=== PATIENT | female | born 1990 | race Caucasian/White ===

== ENCOUNTER 2017-01-13 05:44 | Day surgery (SDC) | payer OTHER ==
[~2017-01-13] VITALS: Ht 162.6 cm; Wt 87.0 kg
[2017-01-13] VITALS (9 sets, daily range): BP systolic 103–118; BP diastolic 67–77; PULSE 78–88; RESP 11–17; O2SAT 94–100
[~2017-01-13 05:44] MED LIST: LEVO88CA2 PO; Lactated Ringer's 1,000 ML IV SCH; MULT-1018 PO
[2017-01-13] MEDS ORDERED: fentaNYL-PF 50 mCg/mL 2 mL Inj ONE (05:45)
[2017-01-13] MEDS ORDERED: Ondansetron 2 mg/mL 2 mL Inj ONE (05:45)
[2017-01-13] MEDS ORDERED: Propofol 10,000 mCg/mL 20 mL Inj ONE (05:45)
[2017-01-13] MEDS ORDERED: Dexamethasone 4 mg/mL Inj ONE (05:45)
[2017-01-13] MEDS ORDERED: CeFAZolin 2 Gm/50 mL D5W IV Premix IV ONE (06:00)
[2017-01-13] MEDS ORDERED: Lactated Ringer's 1,000 ML IV ONE (06:21)
[2017-01-13] MEDS ORDERED: Lactated Ringer's 1,000 ML IV SCH (07:34)
[2017-01-13] MEDS ORDERED: Lactated Ringer's 500 ML IV PRN (07:34)
--- NOTE | 2017-01-13 07:34 | PCM.HPANE ---
Patient Data Surgeon Admitting Provider: Attending Provider:Scott Nelson MD Primary Care Physician:Jan Nevarez MD Other Provider:[facility] Reason for Visit Left Meniscal Tear Ht/WT & BMI Height (Feet): 5 Height (Inches): 4.00 Weight (Kilograms): 87.000 Body Mass Index 32.00 Allergies Coded Allergies: latex (Verified Allergy, Intermediate, Hives, 01/05/17) Past Anesthesia History Anesthesia History: Denies:: Abnormal Airway, Anesthesia Reactions (nausea from pain med), Difficult Intubation, Fam Anesthesia Reaction, Fam Malignant Hypertherm, Malignant Hyperthermia Diabetes History Hx Diabetes?: No MRSA MRSA: Yes (lower left back, 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) Medications Hypertension Medication: No Home Meds Incl Beta Roque: No Reported Medications Levothyroxine (Tirosint)88 Mcg [id number] Mcg PO DAILY 01/05/17 Multivitamin (Multi Vitamin Daily)1 Each Tablet1 Each PO DAILY 30 Days Ref 0 01/05/17 History History of ENT Problems?: No HEENT History: Denies:: Abnormal Airway Cataracts Difficult Intubation Dysphagia Glaucoma Hearing Problem Sinus Problem TMJ Denture Type: None Teeth Condition: Within Normal Limits Hx of Heart Problems?: No Cardiovascular History: Denies:: AICD Abdominal Aortic Aneurism Atrial Fibrillation Congestive Heart Failure Edema Heart Murmur Hypertension Irregular Heartbeat Pacemaker Peripheral Vascular Rheumatic Fever Hx of Respiratory Problem?: No Respiratory History: Denies:: Asthma COPD Emphysema Oxygen Administration Pneumonia Tuberculosis Use of C-PAP Machine Hx Neurologic Problems?: Yes Neurological History: Positive for:: Headaches (daily headaches , occ migraines) Denies:: Alzheimer's Disease CVA Dementia Dizziness Multiple Sclerosis Parkinson's Disease Seizures TIA Hx of GI Problems?: No Hx of Problems?: No Genitourinary History: Denies:: Kidney Stones Urinary Tract Infection Female Hx: Denies:: Currently Problems with Breasts? Skin History: Denies:: History Skin Disorders? Pressure Ulcers Hx Musculoskeletal Problems?: Yes Musculoskeletal History: Positive for:: Musculoskeletal Trauma (left knee current admission problem) Denies:: Fibromyalgia Osteoarthritis Systemic Lupus Hx of Psycho/Social Problems?: No Psycho Social History: Denies:: Anxiety Hx Depression Hx Surgeries?: Yes (appe) Hx Any Other Health Problems?: Yes Other History: Positive for:: Thyroid Disease (Hypothyroid) Denies:: Cancer History Blood Transfusions: Positive for:: Accept Blood Products? Denies:: Blood Transfusions Hx Diabetes: No Hx Alcohol Use: YesAlcoholic Drinks Per Day: on weekends, holidays socialHx Substance Use: No Smoking Status: Never Smoker Have You Smoked inLast 12 mo: No Stop/Bang S-Snoring: Do You Snore Loudly: No T-Tired: feel tired, fatigued: Yes O-Obsered: Observed not breath: No P-Blood Pressure: treated: No B- Body Mass Index > 35 kg/m2: No A- Age over 50: No N- Neck Large Circumference: No G- Gender Male: No ARAVIND Total Score: 1 Risk Assessment Category Category 1A: Patient has history of documented sleep apnea, and HAS NOT received any narcotic, sedative or anesthesia administration during this stay. Category 1B: Patient has history of documented sleep apnea, and HAS received any narcotic , sedative or anesthesia administration during this stay Category 2: Patient has SUSPECTED Obstructive Sleep Apnea, and HAS received any narcotic , sedative or anesthesia administration during this stay. Category 3: Patient has SUSPECTED Obstructive Sleep Apnea and HAS NOT received narcotic, sedative or anesthesia administration during this stay. Category 4: Outpatient in Procedural Areas with known sleep apnea or who screen positive for High Risk via the STOP/BANG questionnaire. Exam Exam Vital Signs Vital Signs Date Time Temp Pulse Resp B/P Pulse Ox O2 Delivery O2 Flow Rate FiO2 01/13/17 06:14 36.7 86 17 109/72 98 Room Air General Appearance: Alert, Oriented X3 HEENT/AIRWAY: MP 2, Neck Movement (FROM) Lungs: Clear to Auscultation, Clear to Percussion Heart: Exam Unremarkable, Regular Rate/Rhythm Meds/Labs/Diagnostics Admission Meds Current Medications Lactated Ringer's (Lr) 1,000 ml @ ud STK-MED ONCE IV Last administered on t 06:21; Start 01/13/17 at 06:21; Stop 01/13/17 at 06:22; Status DC Plan Impression Patient chart reviewed, patient interviewed and anesthestic plan with risks, benefits, and alternatives discussed, and informed consent obtained. ASA Physical Status: ASA2 Mod Systemic Disease Anesthetic Plan: GA Bene/Risks/Altern/Consents: Yes HP Complete Prior to Induction: Yes Darius Larry MD Jan 13, 2017 07:18
[2017-01-13] MEDS ORDERED: Phenylephrine 10,000 mCg/mL Inj IVPUSH PRN (07:35)
[2017-01-13] MEDS ORDERED: Ondansetron 2 mg/mL 2 mL Inj IVPUSH PRN (07:35)
[2017-01-13] MEDS ORDERED: Atropine 0.4 mg/mL Inj IVPUSH PRN (07:35)
[2017-01-13] MEDS ORDERED: Labetalol 5 mg/mL 4 mL Inj IV PRN (07:35)
[2017-01-13] MEDS ORDERED: MetoCLOpramide 5 mg/mL 2 mL Inj IVPUSH PRN (07:35)
[2017-01-13] MEDS ORDERED: HYDROmorphone 1 mg/mL Inj IVPUSH PRN (07:35)
[2017-01-13] MEDS ORDERED: fentaNYL-PF 50 mCg/mL 2 mL Inj IVPUSH PRN (07:35)
[2017-01-13] MEDS ORDERED: EPHEDrine Sulfate 50 mg/mL Inj IVPUSH PRN (07:35)
[2017-01-13] MEDS ORDERED: Ropivacaine-PF 0.5% 30 mL Inj INFILTRATE ONE (07:48)
[2017-01-13] MEDS ORDERED: HYDROcodone-APAP 5-325 mg Tablet PO PRN (08:15)
[2017-01-13] MEDS ORDERED: Ketorolac 15 mg/mL Inj IVPUSH ONE (08:15)
--- NOTE | 2017-01-13 08:18 | PCM.ORTHOP ---
Orthopedic Operative Report Date of Service: Jan 13, 2017 Pre Operative Diagnosis left knee lateral meniscus tear Post Operative Diagnosis Left knee lateral meniscus tear, synovitis Procedure Left knee arthroscopy, partial lateral meniscectomy, partial synovectomy Surgeon Surgeon: Scott Nelson MD Assistants: Everett Pack Indication for Procedure Left knee lateral meniscus tear Findings Per dictation Details of Procedure INDICATIONS:Eleanor Terry is a 26-year-old female who has had a history of left knee pain. The patient has failed conservative management. X-rays show the tibiofemoral joints to be preserved with no DJD. MRI was obtained which reveals lateral meniscus tear. The patient has had persistent symptoms and is now brought to the operating room for arthroscopy. The risks, benefits, and alternatives of surgery were discussed with the patient. The risks included but were not limited to infection, bleeding, damage to vessels and nerves, loss of motion, continued pain, re-tear of the meniscus, deep venous thrombosis, and complications due to anesthesia including nerve injury, myocardial infarction, stroke, , etc. The patient stated understanding of the nature of the surgical procedure and gave written and verbal consent to proceed. PROCEDURE: The patient was brought to the operating room and placed supine on the operating room table. After the administration of general anesthesia the patient was placed in the supine position. Examination of the knee revealed no evident instability with a trace effusion. All prominences were padded with appropriately and neurovascular structures protected. The left knee was confirmed to be the appropriate site following surgical time out. The left lower extremity was examined under anesthesia. Range of motion was 0-135 degrees. There was no varus or valgus or anterior or posterior instability. The left lower extremity was then prepped and draped in the usual fashion. Sterile prep and drape was then undertaken of the knee. The knee joint was injected with 20 ccs of 1% Lidocaine, along with 3 ccs of 1 % lidocaine in the medial and lateral portal sites respectively. A standard anterolateral parapatellar stab wound was created. The knee joint was entered with a blunt- tipped obturator, followed by the 30-degree video arthroscope. An anteromedial portal was established under arthroscopic control. A routine arthroscopic survey was performed. The patellofemoral joint showed grade 1 chondromalacia which did not necessitate debridement. The medial joint space was then entered. The articular surfaces showed grade 1 chondromalacia. There was a tear noted to the medial meniscus and was stable to probing. The ACL and PCL were noted to be intact. The lateral joint space was then entered. The articular surfaces were intact with grade 1 chondromalacia. There was a degenerative tear to the body aspect of the lateral meniscus. A combination of the shaver and cutting instruments were then inserted and a debridement of this tissue down to stable tissue was undertaken. Moderate synovitis was noted anteriorly in the medial and lateral compartment and debrided with a shaver. The knee was irrigated with an additional 2 liters of lactated Ringer's solution. Excess fluid was drained. The portals were closed with 3-0 nylon as well as xeroform. The knee was injected with 20 mL of 0.5% ropivacaine. A dry sterile dressing was applied, followed by an HIREN hose, soft roll, and GARY bandage. The patient was awakened in the operating room and transported to the recovery room in satisfactory condition. The patient appeared to tolerate the procedure well. At the completion of surgery the patient had soft compartments , palpable pulses, and brisk capillary refill. There were no complications noted. Please keep dressing clean dry and intact. Do not remove dressing until follow- up in clinic. If the dressing become soaked, you may remove the outer gauze and placed Band-Aids on the wounds. You may weight-bear as tolerated and maintain motion of your knee by bending it daily. You will follow up in clinic in 10-14 days for suture removal, and placement of new Steri-Strips. You will follow-up with me in clinic, and we will start physical therapy if needed. You will follow-up with a PA at 6 weeks postop and 12 weeks postop and will be released after that if improved. Please keep the affected extremity elevated when possible. You may use ice and/or heat as needed for comfort. ( preferably ice during the first 48-72 hours) Please feel free to call with any further questions, comments, and/or concerns. Grafts, Implants: None Complications There were no periprocedural complications identified. Condition Stable Anesthetic Administered: GA Catheters: None Output, Estimated Blood Loss: 5 Blood Admin during surgery: No Surgical Cast or Splint: Other Surgical Specimen Removed: No Specimen sent to Pathology: No copies to: Scott Nelson MD, Christopher L MD Jan 13, 2017 08:18
--- NOTE | 2017-01-13 09:11 | PCM.ANEP1 ---
Post Anesthesia PACU Phase 1 Assessment Vital Signs Vital Signs Date Time Temp Pulse Resp B/P Pulse Ox O2 Delivery O2 Flow Rate FiO2 01/13/17 08:42 36.1 87 16 112/69 100 Room Air 01/13/17 08:35 87 14 111/68 95 Room Air 01/13/17 08:30 36.2 78 11 118/69 97 Nasal Cannula 2 01/13/17 08:25 88 12 118/77 97 Nasal Cannula 2 01/13/17 08:20 87 12 117/75 94 Nasal Cannula 2 01/13/17 08:15 87 13 118/73 96 Nasal Cannula 2 01/13/17 08:12 36.3 84 14 112/74 98 Simple Mask 8 01/13/17 06:14 36.7 86 17 109/72 98 Room Air Anesthetic Administered: GA Level of Alertness: Awake, talking YODER's with Equal Strength: Yes Pain: No Nausea or Vomiting: No CV Function & Hydration Stable: Yes Airway Device: Oxygen Delivery: Simple Mask Lungs: Clear to Auscultation, Clear to Percussion PACU Phase 2 Assessment Complications: No Follow up Care: No Patient Instructions Provided: N/A Darius Larry MD Jan 13, 2017 09:11
== END 2017-01-13 23:59 | disposition home or self-care (01) ==
LOC: SAS 05:44
PROVIDERS: ATTEND Orthopaedic Surgery
DX: S83.272A Complex tear of lateral meniscus, current injury, left knee, initial encounter (principal); M65.862 Other synovitis and tenosynovitis, left lower leg; X50.0XXA Overexertion from strenuous movement or load, initial encounter; X50.3XXA Overexertion from repetitive movements, initial encounter; Y93.79 Activity, other specified sports and athletics; Y92.9 Unspecified place or not applicable; Y99.8 Other external cause status; Z86.14 Personal history of Methicillin resistant Staphylococcus aureus infection
CPT/HCPCS: 29881; J0690; J1100; J1885; J2405; J2704; J2765; J2795; J3010; J7120